=== PATIENT | male | born 1965 | race Two or more races ===

== ENCOUNTER 2016-06-11 10:16 | Day surgery (SDC) | payer BC ==
[~2016-06-11 10:16] MED LIST: FENTANYL 250 MCG/5 ML AMP IV PRN; LACTATED RINGERS 1,000 ML IV SCH; LIDOCAINE Viscous 2% 15 ML UDCUP PO PRN; MIDAZOLAM HCL 5 MG/5 ML VIAL IV PRN
[2016-06-11] MEDS ORDERED: IV START KIT ONE (10:21)
[2016-06-11] MEDS ORDERED: LACTATED RINGERS 1,000 ML ONE (10:21)
[2016-06-11] MEDS ORDERED: FENTANYL 5 ML ONE (11:24)
[2016-06-11] MEDS ORDERED: MIDAZOLAM HCL 5 MG/5 ML VIAL ONE (11:24)
[2016-06-11] MEDS ORDERED: LIDOCAINE Viscous 2% 15 ML UDCUP ONE (11:25)
[2016-06-11 16:41] LABS: HELICOBACTER PYLORII DETECTION NEGATIVE (NEGATIVE)
--- NOTE | 2016-06-17 07:42 | SURGPATH ---
[facility] [address] [place] [id number] Patient Name: LATRELL SADLER MR#: [id number] : 1965 Gender: M Specimen #: [id number] Collected: 06/11/2016 Received: 06/15/2016 Reported: 06/17/2016 Submitting Phys: LAURA HUTCHISON Copy To Phys: [facility] SULY EBONY Clinical History / Pre-Operative Diagnosis: Post prandial periumbilical pain and bloating, rule out; celiac, giardia, gastritis Specimen Source / Surgical Procedure Performed: #1 duodenal biopsy, #2 antral biopsy Interpretation: 1. DUODENUM, BIOPSIES: - NONSPECIFIC DUODENITIS - SEE COMMENT 2. ANTRUM, BIOPSY: - CHRONIC, MODERATELY ACTIVE GASTRITIS - HELICOBACTER PYLORI NOT IDENTIFIED BY IMMUNOCHEMISTRY Comment: There are minimal changes in the duodenal biopsy with a nonspecific increase in the number of lymphocytes in the villous epithelium, without significant villous blunting. These findings are nonspecific. Please correlate clinically. Electronically Signed Out Reid Cruz M.D. Gross Description: 1. The specimen is received in formalin labeled with the patient's name and "duodenum". The specimen consists of three fragments of robertson soft tissue, 0.6 x 0.2 x 0.1 cm in aggregate. Submitted in toto in one cassette 2. The specimen is received in formalin labeled with the patient's name and "antrum". The specimen consists of a single fragment of robertson soft tissue, 0.6 cm in greatest dimension. Submitted in toto in one cassette [place] Microscopic Description: Microscopic performed. Helicobacter stain performed after examination of routine stain. (Analyte-specific reagents (ASR) are used in many laboratory tests necessary for standard medical care and generally do not require FDA approval. This test was developed and its performance characteristics determined by [facility]. It has not been cleared or approved by the U.S. Food and Drug Administration. [facility] is certified under the Clinical Laboratory Improvement Amendments of 1988 as qualified to perform high complexity clinical laboratory testing. All controls stain as expected.) 1: 61619 2: 38959, 29989 K29.30
== END 2016-06-11 12:59 | disposition home or self-care (01) ==
LOC: SDC 10:16
PROVIDERS: ATTEND Internal Medicine Gastroenterology
PROC: 0DB98ZX Excision of Duodenum, Via Natural or Artificial Opening Endoscopic, Diagnostic (ICD-10-PCS; principal; 2016-06-11)
PROC: 0DB68ZX Excision of Stomach, Via Natural or Artificial Opening Endoscopic, Diagnostic (ICD-10-PCS; 2016-06-11)
PROC: 0DJD8ZZ Inspection of Lower Intestinal Tract, Via Natural or Artificial Opening Endoscopic (ICD-10-PCS; 2016-06-11)
DX: R10.33 Periumbilical pain (principal); K59.00 Constipation, unspecified; Z83.71 Family history of colonic polyps; K29.50 Unspecified chronic gastritis without bleeding; K29.80 Duodenitis without bleeding; I10 Essential (primary) hypertension; E78.5 Hyperlipidemia, unspecified; E03.9 Hypothyroidism, unspecified; J30.9 Allergic rhinitis, unspecified; Z72.0 Tobacco use
CPT/HCPCS: 43239; 45378; 87081; J3010; J2250; A9270; J7120